=== PATIENT | male | born 1990 | race Caucasian/White ===

== ENCOUNTER 2018-11-01 09:45 | Emergency (ER) | payer SELFPAY ==
[2018-11-01] MEDS: ACETAMINOPHEN 650MG/20.3ML CUP PO (10:08)
[2018-11-01] MEDS: DIPHTH/TET/ACEL PERTUSS (ADULT) 0.5 ML VIAL IM* (10:08)
[2018-11-01] MEDS: LIDOCAINE 2% (MDV) 20 ML INJ INJ (10:10)
[2018-11-01] MEDS: AMOXICILLIN/CLAV 875 MG TAB PO (10:39)
[2018-11-01] MEDS: BACITRACIN/POLYMYXIN 28.35 GM OINT TOP (11:27)
== END 2018-11-01 11:49 | disposition home or self-care (01) ==
LOC: FTE 09:45
DX: S01.511A Laceration without foreign body of lip, initial encounter (principal); W54.0XXA Bitten by dog, initial encounter; Y92.9 Unspecified place or not applicable; Z23 Encounter for immunization
CPT/HCPCS: 12013; 90471; 90715; 99283-25